=== PATIENT | female | born 1970 | race Caucasian/White ===

== ENCOUNTER 2021-12-06 01:59 | Emergency (ER) | payer OTHER, SELFPAY ==
--- NOTE | ~2021-12-06 | CT_ITS ---
EXAMINATION: CT abdomen pelvis w con EXAM DATE: 12/06/2021 04:33 INDICATION: Right upper quadrant pain. Nausea. TECHNIQUE: Spiral CT of the abdomen and pelvis was performed following intravenous injection of 100 m L Omnipaque 350. Axial, coronal and sagittal images of the abdomen and pelvis were reviewed. The do se-length product (DLP) for this examination was 791.34 mGy-cm. The exposure was tailored according to patient size (auto mA exposure control), and iterative reconstruction (ASIR) was used as additiona l dose reduction technique. There is no prior study for comparison. FINDINGS: The liver, spleen, adrenal glands and pancreas are unremarkable. There are cholecystectomy clips. Portal and splenic veins are patent. Kidneys enhance symmetrically. There is no hydronephr osis. Probable 2 mm right inferior calyceal stone. No ureteral stones. The uterus is unremarkable. The bladder is unremarkable. There is no retroperitoneal or pelvic lymphadenopathy. Small umbilic al fat-containing hernia. There are no findings to suggest appendicitis. The stomach and small bowel are unremarkable. There is expected amount of colonic stool. No free intraperitoneal gas. The heart is normal in size. T here are no pericardial or pleural effusions. The lung bases are unremarkable. There are no osteobl astic or osteolytic lesions identified. IMPRESSION: 1. No acute intra-abdominal findings. 2. Probable punctate right nephrolithiasis. Reviewed, dictated and finalized at location A.
[2021-12-06 02:08] VITALS: BP 152/71; PULSE 72; RESP 18; TEMP 36.7; O2SAT 100
[2021-12-06 02:46] LABS: Basophils Percent Auto 0.4 % (0.2-1.2); Eosinophils Absolute Auto 0.1 K/mm3 (0-0.3); Eosinophils Percent Auto 1.1 % (0-4.4); Hemoglobin 13.6 g/dL (12.0-15.0); Immature Granulocyte Absolute 0.04 K/mm3 (0.00-0.031); Immature Granulocyte Percent A 0.4 % (0-0.5); Lymphocytes Absolute Auto 2.81 K/mm3 (0.9-3.2); Lymphocytes Percent Auto 31.3 % (18.3-44.2); Mean Corpuscular HGB Conc 31.6 g/dl (32-36); Mean Corpuscular Volume 91.7 fl (80-100); Mean Platelet Volume 9.1 fl (7.4-10.4); Monocytes Absolute Auto 0.7 K/mm3 (0.1-0.6); Monocytes Percent Auto 7.8 % (2.6-8.5); Neutrophils Absolute Auto 5.3 K/mm3 (1.3-6.7); Platelet Count Result 221 k/mm3 (150-375); Red Blood Count 4.69 M/mm3 (4.2-5.4); Red Cell Distribution Width 13.7 % (11.5-14.5)
[2021-12-06 02:55] LABS: Alanine Aminotransferase 21 U/L (4-35); Albumin Level 3.7 g/dL (3.5-5.1); Alkaline Phosphatase 84 U/L (38-126); Anion Gap 9 mmol/L (8-16); Aspartate Amino Transferase 20 U/L (14-36); Bilirubin,Total 0.2 mg/dL (0.2-1.3); Blood Urea Nitrogen 15 mg/dL (7-17); Calcium 8.8 mg/dL (8.4-10.2); Carbon Dioxide 24 mmol/L (22-30); Chloride 105 mmol/L (98-107); Estimated CRCL calculation 77 ml/min; Estimated Glomerular Filt Rate > 60; Glucose 131 mg/dL (65-110); Lipase 107 U/L (23-300); Potassium 3.6 mmol/L (3.4-5.0); Sodium 138 mmol/L (137-145)
--- NOTE | 2021-12-06 03:50 | ED.ABDPAIN ---
HPI - Abdominal Pain General Chief Complaint: Abdominal Pain Stated Complaint: abd pain Time Seen by Provider: 12/06/21 03:39 Source: patient, family and RN notes reviewed Limitations: no limitations History of Present Illness HPI narrative: 51-year-old female presenting to the emergency department for evaluation of persistent right upper quadrant abdominal pain. Patient states over the course of the last month she has had persistent right upper quadrant pain that ranges from a 3 to a 6/10. Patient does have a prior history of cholecystectomy approximately 19 years ago. Patient states the pain is located the right upper quadrant does radiate into her back. Patient reports the pain is worsened with alcohol consumption and is also worsened with ice cream and fatty foods. Patient did have follow-up with her primary care physician today and was prescribed Bentyl. Patient declined the Bentyl. Patient was laying in bed tonight when she had an acute worsening of the pain which prompted her to present to the ED. Upon arrival to the ED patient states that her pain has improved. Related Data Home Medications Medication Instructions Recorded Confirmed omeprazole 20 mg tablet,delayed 20 mg PO DAILY PRN 02/08/20 12/05/21 release propranolol 80 mg capsule,24 80 mg PO DAILY 02/08/20 12/05/21 hr,extended release divalproex 500 mg tablet,extended 500 mg PO DAILY tablet 09/30/20 12/05/21 release 24 hr fluoxetine 40 mg capsule 80 mg PO QAM cap 09/30/20 12/05/21 topiramate 50 mg tablet 200 mg PO BID tablet 09/30/20 12/05/21 potassium chloride 20 mEq 20 meq PO DAILY 12/05/21 12/05/21 tablet,extended release Allergies Allergy/AdvReac Type Severity Reaction Status Date / Time No Known Allergies Allergy Verified 12/06/21 03:30 Review of Systems Review of Systems: CONSTITUTIONAL: Denies fever, chills, or sweats. EYES: Denies visual changes, redness, or discharge. ENT: Denies rhinorrhea, congestion, sore throat, or otalgia. CARDIOVASCULAR: Denies chest pain, palpitations, or edema. RESPIRATORY: Denies cough or dyspnea. GASTROINTESTINAL: See HPI GENITOURINARY: Denies dysuria or hematuria. SKIN: Denies rash or itching. MUSCULOSKELETAL: Denies back pain, joint pain, or myalgia. NEUROLOGIC: Denies headache, numbness, or weakness. PMFSH Past Medical History Medical History (Updated 12/07/21 @ 00:00 by Amanda Roman) Depression Diabetes Essential (primary) hypertension GERD without esophagitis Hyperlipidemia Migraine Surgical History Surgical History Hx of cholecystectomy (~11/2012) Family History Family History Other Diabetes mellitus Hypertension Social History Social History Smoking status: Current every day smoker Alcohol intake: current Substance use: never Substance use type: does not use Exam Narrative: APPEARANCE: Well appearing, no pain, no distress, well-nourished. HEAD: normocephalic, atraumatic. EYES: PERRLA/EOMI, conjunctivae clear. NECK: Supple. No adenopathy, no masses. RESPIRATORY: Airway patent, respirations nonlabored. Clear to auscultation bilaterally, no rales, rhonchi, wheezing. CARDIOVASCULAR: Regular rate and rhythm without murmurs rubs or gallops. ABDOMINAL: Some right upper quadrant tenderness to palpation. No midline tenderness to palpation. Nonsurgical abdomen. No evidence of peritonitis. MUSCULOSKELETAL: Moves all extremities. Strength/ROM intact. NEURO: Alert. Cranial nerves II through XII intact. Good gait. Good coordination SKIN: Warm, dry. Normal Color Course Course Emergency Course: Patient was updated on the results of her labs and imaging. Patient was advised to have close follow-up with GI. Vital Signs Vital signs: Vital Signs Temperature 98.0 F 12/06/21 02:08 Pulse Rate 72 12/06/21 02:08 Resp
[2021-12-06 03:54] LABS: Appearance Urine Clear (Clear); Bilirubin Urine Negative (Negative); Blood Urine 1+ (Negative); Color Urine Yellow (Yellow); Glucose Urine UA Negative (Negative); Ketones Urine Negative (Negative); Leukocyte Esterase Ur Negative LEU/UL (Negative); Nitrate Urine Negative (Negative); Protein Urine Negative (Negative); Specific Grav Ur 1.025 (1.001-1.035); Urobilinogen Urine 0.2 mg/dL (<2.0)
[2021-12-06 04:01] LABS: Mucus Urine Rare /lpf; Squamous Epithelial Cell Urine Occasional /hpf (Few); WBC Urine 0-3 /hpf
[2021-12-06 04:10] LABS: Add Urine Microscopic? YES
[2021-12-06 04:56] VITALS: BP 138/81; PULSE 64; RESP 18; O2SAT 99
[2021-12-06] MEDS: KETOROLAC 15 MG/ML VIAL (*BKC) IV PUSH (05:29)
[2021-12-06 07:54] VITALS: BP 132/74; PULSE 72; RESP 16; O2SAT 99
== END 2021-12-06 07:56 | disposition home or self-care (01) ==
PROVIDERS: Emergency Provider Emergency Medicine; PCP Family Medicine
DX: R10.11 Right upper quadrant pain (principal); E11.9 Type 2 diabetes mellitus without complications; I10 Essential (primary) hypertension; E78.5 Hyperlipidemia, unspecified; K21.9 Gastro-esophageal reflux disease without esophagitis; F17.200 Nicotine dependence, unspecified, uncomplicated; F32.A Depression, unspecified; Z79.84 Long term (current) use of oral hypoglycemic drugs
CPT/HCPCS: 36415; 74177; 80053; 81001; 83690; 85025; 96374; 99284; J1885; Q9967

== ENCOUNTER 2024-12-17 15:17 | Outpatient (CLI) | payer OTHER, SELFPAY ==
--- NOTE | ~2024-12-17 | XR_ITS ---
XR shoulder LT min 2V 12/17/2024 15:42 Indication: Left shoulder pain Procedure: 4 views left shoulder Comparison: 12/17/2024 Findings: No fracture, subluxation or dislocation. No significant soft tissue abnormality. No foreign bodies. Impression: 1: No acute bone or joint abnormality. Reviewed, dictated and finalized at location A. Impression: 1: No acute bone or joint abnormality.
--- NOTE | ~2024-12-17 | XR_ITS ---
XR humerus LT 12/17/2024 15:42 Indication: Left arm pain Procedure: 3 views left humerus Comparison: No prior studies for comparison. Findings: No fracture, subluxation or dislocation. No significant soft tissue abnormality. No foreign bodies. Impression: 1: No acute bone or joint abnormality. Reviewed, dictated and finalized at location A. Impression: 1: No acute bone or joint abnormality.
== END 2024-12-17 15:18 | disposition home or self-care (01) ==
LOC: GOSHIMG 15:18
PROVIDERS: PCP Nurse Practitioner; Visit Provider Nurse Practitioner
DX: M79.622 Pain in left upper arm (principal); M25.512 Pain in left shoulder
CPT/HCPCS: 73030; 73060

== ENCOUNTER 2025-02-23 12:30 | Outpatient (RCR) | payer OTHER, SELFPAY ==
--- NOTE | 2025-01-14 18:14 | PTOPEVAL1 ---
Assessment and note entered by Sia Escalona, PT Evaluation Information Assessment Status Evaluation Diagnosis S46.212A ICD-10 Condition Codes (PT) Pain in left shoulder M25.512 Onset about a year ago Subjective Information Pt recalls that injury started approx a year ago when she felt a surge of intense pain up her L arm when she tried to rapidly lift a heavy box off the floor. Since that day pain persisted and is gradually worsening; Feels worse at night which greatly limits her lying on the L side which is her comfortable side prior to injury. This is her greatest frustration because it caused her so much discomfort or wakes her up in her sleep. Repeated movements (household work) also increase the pain . She is active and attends resistance workout 3x/wk ; performing bicep curls is ok, lifting objects or even lifting her arm overhead or putting clothes is difficult and painful. Her personal goal is to be to be pain free by April to be able to take care of daughter and soon to be grandbaby. Reported Pain Level Pain Score 3: Self Report Assessment PT Clinical Summary Pt presents to therapy with c/o pain to L upper arm that is gradually worsening since the onset. She demos reduced ROM, weakness, shoulder instability and noticeable guarding of surrounding muscles further limiting flexibility; shoulder special tests indicates probability of bicipital tendonitis with possible rotator cuff involvement. She also scored 39 on the Quick Dash indicating moderate functional limitation. Pt will benefit from skilled PT intervention to manage pain, improve shoulder mobility, strength and stability in order to perform functional mobility independently and pain free. Plan of Care Interventions Check Out for Orthotic/Prosthetic,Electrical Stimulation,Hot Pack/Cold Pack,Manual Therapy, Neuro Re-education,Patient/Caregiver Education, Therapeutic Activities,Therapeutic Exercise, Ultrasound,Other Other Interventions IASTM, Taping, Dry Needling PT Services Indicated Yes Treatment Frequency and 2x/wk x 12 visits Duration These treatments will address the objective and functional deficits as defined above. The patient will be advanced safely and appropriately in order for the patient to progress towards his/her prior level of function. Additional exercises will be introduced and as well as a comprehensive home exercise program upon discharge, if needed, ?to ensure carryover of functional gains achieved in the clinic. This treatment plan has been reviewed and agreement upon by the patient.
--- NOTE | 2025-01-14 18:14 | OPREHPOC ---
Outpatient Therapy Plan of Care This is a Multidisciplinary Plan of Care that may contain components documented by all disciplines (PT, OT, and ST.) PT Problem 1 PT Problem #1 Knowledge Deficit PT Goal 1 Goal / Goal Update Pt will perform shoulder stabilization and strengthening exercises indep Target Visit 10 PT Problem 2 PT Problem #2 Pain PT Goal 1 Goal / Goal Update 1. Pt will report a reduction of pain to 2-3 at worst in order to perform ADLs and IADLs without increased discomfort. Target Visit 10 PT Goal 2 Goal / Goal Update 2. Pt will report being able to lay or bear weight to L side when sleeping without increased pain for 2-3 consecutive weeks. Target Visit 10 PT Problem 3 PT Problem #3 Impaired Strength PT Goal 1 Goal / Goal Update Pt will demo at least 4/5 strength or more to LUE to all tested planes without increased pain. Target Visit 12
--- NOTE | 2025-02-23 13:37 | PTOPDC ---
Assessment and note entered by Umer Ivory PT Evaluation Information Assessment Status Discharge Diagnosis S46.212A ICD-10 Condition Codes (PT) Pain in left shoulder M25.512 Onset about a year ago Subjective Information Pt reports she feels 40% since starting physical therapy she notes improvements in her motion and a little bit of strength. Pt continues to have pain with driving and housework such as sweeping the floor. Pt notes she has an MRI on March 01. Pt states she feels like she has plateaued in therapy and wants to continue managing her symptoms on her own until she gets the MRI. Reported Pain Level Pain Score 1: Self Report Assessment PT Clinical Summary Pt continues to report L shoulder pain and symptoms consistent with a long head of biceps pathologies. Pt has made progress toward treatment goals but feels like progressed has plateaued and pt wants to manage symptoms at home until she receives her MRI and re-establishes with orthopedic physician. Pt will be discharged from therapy at this time. Plan of Care PT Services Indicated No
== END 2025-02-24 11:43 | disposition home or self-care (01) ==
LOC: ANHGOSHPT 12:30
PROVIDERS: PCP Nurse Practitioner; Visit Provider Nurse Practitioner
DX: S46.212A Strain of muscle, fascia and tendon of other parts of biceps, left arm, initial encounter (principal); M25.512 Pain in left shoulder
CPT/HCPCS: 97014; 97110; 97112; 97140; 97161; G0283

== ENCOUNTER 2025-03-01 08:56 | Outpatient (CLI) | payer OTHER, SELFPAY ==
--- NOTE | ~2025-03-01 | MR_ITS ---
MRI of the left shoulder Technique: Axial proton-density fat-sat images, coronal proton density fat-sat and T2 fat-sat images, and sagittal T1-weighted and T2 fat-sat images were acquired. Clinical History: Pain Findings: There is mild AC joint degenerative change. Coracoclavicular, coracoacromial, and coracohum eral ligaments are intact. Supraspinatus and infraspinatus tendons demonstrate mild to moderate tendinosis without partial or fu ll-thickness tear. Subscapularis tendon is intact with minimal tendinosis. Tendon of long head of the biceps is intact. Probable degenerative SLAP tear of the labrum. Inferior glenohumeral ligament is intact. There is advanced degenerative change of the glenohumeral j oint with joint space narrowing and diffuse high-grade chondromalacia. Moderate glenohumeral joint ef fusion present. No muscle atrophy or edema. No fluid distention of the subacromial/subdeltoid bursa. Impression: Probable degenerative SLAP tear of the labrum. 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 Reviewed, dictated and finalized at location . Impression: Probable degenerative SLAP tear of the labrum. 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
== END 2025-03-01 08:57 | disposition home or self-care (01) ==
LOC: GOSHIMG 08:56
PROVIDERS: PCP Family Medicine; Visit Provider Nurse Practitioner
DX: M19.012 Primary osteoarthritis, left shoulder (principal); M25.412 Effusion, left shoulder
CPT/HCPCS: 73221